=== PATIENT | female | born 1970 | race Caucasian/White ===

== ENCOUNTER 2017-01-17 13:02 | Emergency (ER) | payer BC, OTHER ==
[2017-01-17] MEDS ORDERED: Lidocaine 1% 50 ML MDV INJECT ONE (13:29)
[2017-01-17] MEDS ORDERED: Ondansetron 4 MG Tab.DIS PO ONE (13:29)
[2017-01-17] MEDS ORDERED: Acetaminophen 325 MG Tab PO ONE (14:18)
[2017-01-17] MEDS ORDERED: Diphtheria,Pertussis(Acell),Tetanus Vaccine 0.5 ML SDV IM ONE (14:19)
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
[2017-01-17 15:55] VITALS: BP 122/69
--- NOTE | 2017-01-18 13:48 | CT ---
Head CT Technique: Multiple axial sections through the brain were obtained. Intravenous contrast was not utilized. Comparison: No previous intracranial imaging is available. Findings: Ventricles along with basal cisterns and sulci over the convexities are within normal limits for the patient's age. No abnormal parenchymal densities are seen. No evidence of intracranial hemorrhage. No midline shift or mass effect is seen. Bone window settings were reviewed which show no discrete calvarial abnormality. Visualized sinuses are clear. Impression: 1. No abnormality is identified on noncontrast head CT study. Diagnostic code #1 I agree with preliminary report issued by [facility] ([facility] report finalized on 01/17/17, 3:25 PM Central Time)
== END 2017-01-17 14:58 | disposition home or self-care (01) ==
LOC: JD.ED 13:02
PROC: 0JQJ0ZZ Repair Right Hand Subcutaneous Tissue and Fascia, Open Approach (ICD-10-PCS; principal; 2017-01-17)
DX: S06.0X1A Concussion with loss of consciousness of 30 minutes or less, initial encounter (principal); S61.210A Laceration without foreign body of right index finger without damage to nail, initial encounter; F41.9 Anxiety disorder, unspecified; Z98.890 Other specified postprocedural states; Z96.659 Presence of unspecified artificial knee joint; F17.210 Nicotine dependence, cigarettes, uncomplicated; Z88.5 Allergy status to narcotic agent; W18.00XA Striking against unspecified object with subsequent fall, initial encounter
CPT/HCPCS: 12001; 70450; 90471; 90715; 99284; A9270; 64450